=== PATIENT | male | born 1995 | race Caucasian/White ===

== ENCOUNTER 2018-12-29 15:48 | Inpatient (IN) ==
[2018-12-30] MEDS ORDERED: ZOFRAN IV PRN (00:05)
[2018-12-30] MEDS ORDERED: TYLENOL PO PRN (00:08)
[2018-12-30] MEDS ORDERED: ATIVAN IV PRN ×2 (00:10→07:24)
[2018-12-30] MEDS ORDERED: PERCOCET-10 PO PRN (01:02)
[2018-12-30 02:46] LABS: URINE SOURCE CLEAN CATCH
[2018-12-30 02:49] LABS: BILIRUBIN URINE NEGATIVE (NEGATIVE); BLOOD URINE NEGATIVE (NEGATIVE); COLOR YELLOW; GLUCOSE URINE NEGATIVE (NEGATIVE); KETONE URINE NEGATIVE (NEGATIVE); LEUKOCYTES URINE NEGATIVE (NEGATIVE); NITRITE URINE NEGATIVE (NEGATIVE); PH URINE 6.5; PROTEIN URINE NEGATIVE (NEGATIVE); TURBIDITY URINE CLEAR (CLEAR); UROBILINOGEN URINE NORMAL (NORMAL)
[2018-12-30 02:59] LABS: UR EPITHELIAL CELLS <10 /HPF (<10); URINE BACTERIA NEGATIVE /HPF; URINE RBC <10 /HPF (<10); URINE WBC <10 /HPF (<10)
[2018-12-30 03:06] LABS: UR AMPHETAMINES QUAL NONE DETECTED (NONE DETECT); UR BARBITUATES QUAL NONE DETECTED (NONE DETECT); UR BENZODIAZEPIN QUAL NONE DETECTED (NONE DETECT); UR CANNABINOIDS QUAL NONE DETECTED (NONE DETECT); UR COCAINE QUAL NONE DETECTED (NONE DETECT); UR METHADONE QUAL NONE DETECTED (NONE DETECT); UR OPIATES QUAL NONE DETECTED (NONE DETECT); UR OXYCODONE QUAL PRESUMPTIVE POSITIVE (NONE DETECT); UR PCP QUAL NONE DETECTED (NONE DETECT)
[2018-12-30 03:31] LABS: URINE CASTS NONE SEEN; URINE CRYSTALS NONE SEEN; URINE SMALL ROUND CELLS NONE SEEN; URINE YEAST NONE SEEN
[2018-12-30 06:45] LABS: BASO# 0.02 X1000 (0.0-0.2); BASO% 0.3 % (0.0-0.8); EOS% 2.7 % (0.0-10.0); HEMATOCRIT 40.2 % (42.0-52.0); HEMOGLOBIN 13.8 g/dL (14.0-18.0); MCH 31.4 PG (27-31); MCHC 34.3 g/dL (33-37); MCV 91.6 FL (81-99); MONO# 0.68 X1000 (0.11-0.59); MONO% 9.2 % (1.7-9.3); MPV 9.6 FL (7.4-10.4); NEUT# 4.23 X1000 (1.4-6.5); NEUT% 56.8 % (42.2-75.2); PLT 195 X1000 (130-400); RBC 4.39 XMIL (4.7-6.1); WBC 7.43 X1000 (4.8-10.8)
[2018-12-30 07:01] LABS: AGAP 14; ALB/GLOB RATIO 1.5; ALBUMIN 4.2 g/dL (3.5-5.0); ALKALINE PHOSPHATASE 98 U/L (32-122); BUN 7 mg/dL (8-22); CALCIUM 9.5 mg/dL (8.8-10.2); CHLORIDE 100 mmol/L (98-107); COSMO 277; CREATININE 0.9 mg/dL (0.7-1.2); ESTIMATED GFR > 60; GLUCOSE 84 mg/dL (70-104); GOT 39 U/L (10-34); GPT 39 U/L (10-44); MAGNESIUM 1.8 mg/dL (1.5-2.7); POTASSIUM 3.6 mmol/L (3.5-5.1); SODIUM 140 mmol/L (136-145); TCO2 26 mmol/L (25-35); TOTAL BILIRUBIN 0.66 mg/dL (0.20-1.00)
[2018-12-30 08:02] VITALS: BP 145/87
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
[2018-12-30] MEDS ORDERED: DILANTIN PO SCH ×2 (09:00→09:06)
[2018-12-30] MEDS ORDERED: COLACE PO SCH (09:00)
[2018-12-30] MEDS ORDERED: MIRALAX PO SCH (09:15)
[2018-12-30] MEDS ORDERED: KEPPRA 500 MG in NS 100 ML IV SCH (09:15)
--- NOTE | 2019-01-01 08:11 | EKG Report ---
Test Performed on : 12/30/2018 06:21:09 AM Test Reason : New Onset Seizures Blood Pressure : / mmHG Vent. Rate : 060 BPM Atrial Rate : 060 BPM P-R Int : 144 ms QRS Dur : 092 ms QT Int : 374 ms P-R-T Axes : 055 062 072 degrees QTc Int : 374 ms Normal sinus rhythm. with sinus arrhythmia. Minimal voltage criteria for LVH, may be normal variant Borderline ECG No previous ECGs available Confirmed by Wei Peacock MD ([id number]) on 01/01/2019 8:52:28 AM
== END 2018-12-30 09:30 | disposition left against medical advice (07) | DRG 101 ==
LOC: DIRADM 15:48 → SUATTDRO 15:48 → 4N 23:42
PROVIDERS: ATTEND Internal Medicine
CPT/HCPCS: 80053; 80101; 80185; 80301; 80307; 80324; 80345; 80346; 80353; 80358; 80361; 80365; 81001; 83735; 83992; 85025; 93005; 93010; A9270; G0431; G0434; G0479; G0480